=== PATIENT | male | born 1950 ===

== ENCOUNTER 2018-02-12 09:00 | Day surgery (SDC) | payer OTHER ==
[2018-02-12] MEDS ORDERED: NEXIUM 24HR20 MG PO (14:41)
== END 2018-02-12 15:55 | disposition home or self-care (01) ==
LOC: AMB-ENDOS 09:00
DX: D13.1 Benign neoplasm of stomach (principal)

== ENCOUNTER 2018-04-01 07:00 | Day surgery (SDC) | payer OTHER ==
[~2018-04-01] VITALS: Ht 185.4 cm; Wt 86.2 kg
[~2018-04-01 07:00] MED LIST: ATORVASTATIN CA40 MG PO; NEXIUM 24HR20 MG PO; PRILOSEC10 MG PO; ZANTAC300 MG PO
[2018-04-02] MEDS ORDERED: NORFLEX100MG PO (16:05)
[2018-04-02] MEDS ORDERED: CARAFATE1 GM/10 ML PO (16:05)
[2018-04-02] MEDS ORDERED: TYLENOL-CODEINE1 TA1 PO (16:06)
[2018-04-02] MEDS ORDERED: GAS RELIEF 8080 MG PO (16:06)
[2018-04-02] MEDS ORDERED: TAMS0.4C PO (16:07)
== END 2018-04-02 09:00 | disposition home or self-care (01) ==
LOC: CIR.AMB 07:00 → RECOVERY 09:30 → EDSTATUS 10:30 → SURG 13:43 → O/R 13:43 → CIR.AMB 04-02 09:00 → SURG 04-02 17:53
DX: K44.9 Diaphragmatic hernia without obstruction or gangrene (principal); K42.9 Umbilical hernia without obstruction or gangrene; K43.2 Incisional hernia without obstruction or gangrene; N32.0 Bladder-neck obstruction; K21.9 Gastro-esophageal reflux disease without esophagitis; R33.8 Other retention of urine